=== PATIENT | male | born 1940 | race Caucasian/White ===

== ENCOUNTER → 2022-03-23 | Outpatient (CLI) | payer MEDICARE, BC ==
[~2022-03-23] MED LIST: IODINE/POTASS IOD (LUGOLS) BOTTLE ONE
--- NOTE | 2022-03-26 09:10 | NM ---
EXAMINATION TYPE: NM DatScan Brain SPECT DATE OF EXAM: 03/23/2022 COMPARISON: NONE HISTORY: Tremors TECHNIQUE: 10 drops of Lugol's solution was administered 1 hour prior to injection as a thyroid bloc tristen agent. After the administration of 4.63 mCi I-123 Ioflupane DaTscan. Images obtained 3 hours p ost injection. SPECT images of the brain were acquired with axial and coronal reconstructions. FINDINGS: The axial SPECT images demonstrate increased background activity and reduced activity withi n the bilateral striata. IMPRESSION: Abnormal appearance highly suggestive of idiopathic Parkinson's disease or Parkinsonian s yndrome.
== END | disposition home or self-care (01) ==
LOC: RADNMMAIN 10:47
PROVIDERS: ATTEND Psychiatry & Neurology Neurology
DX: G20 Parkinson's disease (principal)
CPT/HCPCS: 78803; A9584

== ENCOUNTER → 2022-03-28 | Outpatient (CLI) | payer MEDICARE, BC ==
--- NOTE | 2022-03-28 20:10 | US ---
EXAMINATION TYPE: US kidneys/renal and bladder DATE OF EXAM: 03/28/2022 COMPARISON: NONE CLINICAL HISTORY: N18.32 STAGE 3 CKD. CKD STAGE 3B EXAM MEASUREMENTS: Right Kidney: 10.1 x 5.1 x 5.0 cm Left Kidney: 10.4 x 5.2 x 5.1 cm Right Kidney: INFERIOR POLE CYST NOTED JAY. 2.0 x 2.0 x 2.0cm Left Kidney: INFERIOR POLE CYSTS NOTED, LARGEST JAY. 1.5 x 1.1 x 1.5cm Bladder: DIVERTICULUM VS SEPTATION NOTED Bilateral Jets seen: Yes There is no evidence for hydronephrosis at this point in time. No nephrolithiasis is seen. No solid masses are identified. The urinary bladder is anechoic. Bilateral ureteral jets are seen. IMPRESSION: Bilateral simple appearing renal cysts.
== END | disposition home or self-care (01) ==
LOC: RADUSWWP 15:22
PROVIDERS: ATTEND Internal Medicine
DX: N18.32 Chronic kidney disease, stage 3b (principal); N28.1 Cyst of kidney, acquired
CPT/HCPCS: 76770

== ENCOUNTER 2022-06-13 06:50 | Day surgery (SDC) | payer MEDICARE, BC ==
[~2022-06-13 06:50] MED LIST changes: -IODINE/POTASS IOD (LUGOLS) BOTTLE ONE; +LACTATED RINGERS 1,000 ML IV SCH; +MOXIFLOXACIN HCL 0.5% DROPS 3 ML BTL OP PRN; +TETRACAINE 0.5% OPHTH (PF) DROPS 4 ML BTL OP PRN; +TIMOLOL 0.5% OPHTH DROPS 5 ML BTL OP PRN
[2022-06-13 07:15] VITALS: TEMP 97.8
[2022-06-13] MEDS ORDERED: LACTATED RINGERS 1,000 ML IV ONE (07:15)
[2022-06-13] MEDS: CYCLOPENTOLATE 1% OPHTH SOLN 2 ML BTL OP PRN ×3 (07:20→07:32)
[2022-06-13] MEDS: PHENYLEPHRINE 2.5% OPHTH DRP 2ML OP PRN ×3 (07:23→07:36)
[2022-06-13] MEDS ORDERED: MIDAZOLAM 2 MG/2 ML VIAL ONE (08:14)
[2022-06-13] MEDS ORDERED: fentaNYL (PF) 50 MCG/ML 2 ML AMP ONE (08:14)
[2022-06-13] MEDS ORDERED: BALANCED SALT IRRIG SOLN COMB2 15 ML IRRIG.SOLN INTRAOCULA ONE (08:26)
[2022-06-13] MEDS ORDERED: DUOVISC KIT (GREEN BOX) INTRAOCULA ONE (08:26)
[2022-06-13] MEDS ORDERED: LIDOCAINE 1% (PF) 10MG/ML VIAL SQ ONE (08:27)
[2022-06-13] MEDS ORDERED: EPINEPHrine (PF) 0.3 ML in BALANCED SALT IRRIG SOLN COMB2 500 ML IRRIGATION ONE (08:34)
--- NOTE | 2022-06-13 08:53 | P.OP ---
Date of Procedure: 06/13/22 Preoperative Diagnosis: NS & CS & reg astigm Postoperative Diagnosis: same Procedure(s) Performed: PIOL< OD Implants: [id number] 25.50 x 2.00 Anesthesia: MAC Surgeon: Fei Talavera Pathology: none sent Condition: stable Disposition: same day Indications for Procedure: blurry vision Operative Findings: no complications
[2022-06-13] MEDS ORDERED: hydrALAZINE HCL 20 MG/ML 1 ML VIAL ONE (09:27)
[2022-06-13] MEDS ORDERED: hydrALAZINE HCL 20 MG/ML 1 ML VIAL IVP ONE (09:30)
[2022-06-13 09:47] VITALS: BP 197/85; PULSE 64; RESP 16
--- NOTE | 2022-06-14 01:53 | OP ---
OPERATIVE REPORT PROCEDURES: Phacoemulsification of cataract and intraocular lens implantation of the right eye. PREOPERATIVE DIAGNOSES: Nuclear sclerosis and cortical sclerosis, and regular astigmatism. POSTOPERATIVE DIAGNOSES: Nuclear sclerosis and cortical sclerosis, and regular astigmatism ANESTHESIA: Topical. ESTIMATED BLOOD LOSS: None. SPECIMEN TAKEN: None. NARRATIVE: After obtaining the appropriate consent, the patient was brought to the operating room. There, he was asked to sit upright and the axes 0 and 180 degrees was identified and marked with a gentian sue marker. He was then placed in the proper supine position under cardiac monitoring and then prepped and draped in the usual sterile manner. Using previously acquired corneal topography information, an axis of 66 degrees was identified and marked with a Cionni axis marker. At the 11 o'clock position, an MVR blade was used to create a paracentesis port. Through this opening, 1% Xylocaine MPF 50:50 mix with balanced salt solution was injected into the anterior chamber. This was followed by stabilization of the anterior chamber with Viscoat. At the 9 o'clock position, a 2.5 mm keratome was used to create a self-sealing corneal flap incision. Through that opening, a cystotome was introduced to begin a continuous tear capsulorrhexis, which was then completed using the Utrata forceps. Hydrodissection and hydrodelineation of the lens were accomplished with balanced salt solution. Phacoemulsification of the lens utilizing phaco-chop was accomplished in 20.81 seconds at 14% power. Additional Xylocaine MPF was instilled into the anterior chamber. This was followed by removal of the remaining cortical material from in and around the intraocular lens as well as careful polishing of the posterior capsule in the capsule vacuum mode. Provisc was then used to stabilize the capsular bag and MX60ET 25.5 diopter by 2 diopter posterior chamber intraocular lens was then inserted into the capsular bag without difficulty. The remaining viscoelastic was removed from in and around the intraocular lens as well as the anterior chamber. A final step in setting the lens in the posterior capsule was to align the lens index bales with the 66 degrees previously placed on the patient's cornea. The lens was tamponaded against the posterior capsule for approximately 15 to 20 seconds. This was followed by removal of the irrigation and aspiration tip and the eye was then brought to normal intraocular pressure through the paracentesis port. Incisions were confirmed watertight and the Cionni axis marker was used to once again identify the orientation of the toric implant. He then received 2 drops of 0.5% timolol followed by 2 drops of 0.5% moxifloxacin, was then lightly patched and shielded in the usual manner. There were no complications from the procedure. He tolerated the procedure well and was returned to outpatient recovery in good condition. MMTEJINDER / YEIMY: [id number] /
== END 2022-06-13 10:15 | disposition home or self-care (01) ==
LOC: OR 06:50
PROVIDERS: ATTEND Ophthalmology
DX: H25.811 Combined forms of age-related cataract, right eye (principal); G20 Parkinson's disease; I13.10 Hypertensive heart and chronic kidney disease without heart failure, with stage 1 through stage 4 chronic kidney disease, or unspecified chronic kidney disease; N18.9 Chronic kidney disease, unspecified; E78.00 Pure hypercholesterolemia, unspecified; M54.9 Dorsalgia, unspecified; H04.121 Dry eye syndrome of right lacrimal gland; H52.03 Hypermetropia, bilateral; H25.011 Cortical age-related cataract, right eye; H52.223 Regular astigmatism, bilateral; H52.4 Presbyopia; I25.10 Atherosclerotic heart disease of native coronary artery without angina pectoris; Z95.5 Presence of coronary angioplasty implant and graft; Z79.899 Other long term (current) drug therapy; Z79.890 Hormone replacement therapy
CPT/HCPCS: 66984; V2632; J2250; J0360; J0171; J3010; J2001

== ENCOUNTER 2022-07-11 06:44 | Day surgery (SDC) | payer MEDICARE, BC ==
[~2022-07-11 06:44] MED LIST changes: -LACTATED RINGERS 1,000 ML IV SCH; +LIDOCAINE 1% (10MG/ML) FOR IV START INTRADERMA PRN; -MOXIFLOXACIN HCL 0.5% DROPS 3 ML BTL OP PRN; -TIMOLOL 0.5% OPHTH DROPS 5 ML BTL OP PRN
[2022-07-11] MEDS: LACTATED RINGERS 1,000 ML IV SCH ×2 (07:12→07:30)
[2022-07-11] MEDS: CYCLOPENTOLATE 1% OPHTH SOLN 2 ML BTL OP PRN ×3 (07:16→07:40)
[2022-07-11] MEDS: PHENYLEPHRINE 2.5% OPHTH DRP 2ML OP PRN ×3 (07:23→07:43)
[2022-07-11 07:35] VITALS: RESP 16; TEMP 97.6
[2022-07-11] MEDS ORDERED: MIDAZOLAM 2 MG/2 ML VIAL ONE (08:09)
[2022-07-11] MEDS ORDERED: fentaNYL (PF) 50 MCG/ML 2 ML AMP ONE (08:09)
[2022-07-11] MEDS ORDERED: EPINEPHrine (PF) 0.3 ML in BALANCED SALT IRRIG SOLN COMB2 500 ML IRRIGATION ONE ×4 (08:15)
[2022-07-11] MEDS ORDERED: LIDOCAINE 1% (PF) 10MG/ML VIAL MISCELLANE ONE (08:31)
[2022-07-11] MEDS ORDERED: EPINEPHrine (PF) 1 MG/ML AMP MISCELLANE ONE (08:31)
[2022-07-11] MEDS ORDERED: BALANCED SALT IRRIG SOLN COMB2 15 ML IRRIG.SOLN IRRIGATION ONE (08:31)
[2022-07-11] MEDS ORDERED: HYALURONATE SODIUM INTRAOCULAR 1 EACH SYRINGE (12MG/ML) INTRAOCULA ONE (08:31)
[2022-07-11] MEDS: TIMOLOL 0.5% OPHTH DROPS 5 ML BTL OP PRN ×2 (08:43→08:51)
[2022-07-11] MEDS: MOXIFLOXACIN HCL 0.5% DROPS 3 ML BTL OP PRN ×2 (08:44→08:51)
--- NOTE | 2022-07-11 08:57 | P.OP ---
Date of Procedure: 07/11/22 Preoperative Diagnosis: NS & CS Postoperative Diagnosis: same Procedure(s) Performed: PIOL< OS Implants: [id number] 26.00 Anesthesia: MAC Surgeon: Fei Talavera Pathology: none sent Condition: stable Disposition: same day Indications for Procedure: blurry vision Operative Findings: no complications
[2022-07-11 09:49] VITALS: BP 127/65; PULSE 61
--- NOTE | 2022-07-11 11:57 | OP ---
OPERATIVE REPORT PROCEDURES PERFORMED: Phacoemulsification of cataract and intraocular lens implant of the left eye. PREOPERATIVE DIAGNOSES: Nuclear sclerosis, cortical sclerosis, and regular astigmatism. POSTOPERATIVE DIAGNOSES: Nuclear sclerosis, cortical sclerosis, and regular astigmatism. ANESTHESIA: Topical. ESTIMATED BLOOD LOSS: None. SPECIMEN TAKEN: None. NARRATIVE: After obtaining the appropriate consent, the patient was brought to the operating room. There, he was asked to sit upright, and the axes of 0 and 180 degrees were identified and marked with a gentian sue marker. He was then placed in the proper supine position under cardiac monitoring and prepped and draped in the usual sterile manner. He was approached from his left temporal side. Using previously-acquired corneal topography information, the axis of 105 degrees was identified and marked with a Izooble axis marker. At the 5 o'clock position, an MVR blade was used to create a paracentesis port. Through this opening, 1% Xylocaine MPF with epinephrine 1:1000 MPF and balanced salt solution in a ratio of 1:2:1 was injected into the anterior chamber. This was followed by stabilization of the anterior chamber with Amvisc. At the 3 o'clock position, a 2.5 mm keratome was used to create a self-sealing corneal flap incision. At this point, the pupil was identified to be only partially identified, and based on historical experience with this patient, a 6.25 Malyugin ring was placed on the pupillary sphincter without difficulty. A cystotome was then introduced to begin a continuous tear capsulorrhexis, which then was completed with the Utrata forceps. Hydrodissection and hydrodelineation of the lens were accomplished with balanced salt solution. Phacoemulsification of the lens utilizing phaco chop was accomplished in 15.03 seconds at 14% power. Additional med mix of the Xylocaine and epinephrine was injected into the anterior chamber. This was followed by removal of the remaining cortical material under irrigation and aspiration as well as careful polishing of the posterior capsule in the capsule vacuum mode. Additional Amvisc was then used to stabilize the capsular bag, and a [employer]ausch [employer] Lomb MX60ET 26-diopter, 2-diopter cylinder posterior chamber intraocular lens was injected into the capsular bag without difficulty. The remaining viscoelastic was removed from in and around the intraocular lens itself, and the lens was oriented in its proper direction at the 105-degree dayna previously placed on the patient's cornea. Additional Amvisc was placed in the anterior chamber of the eye to be able to retrieve the Malyugin ring, which was accomplished without difficulty. Then, the anterior chamber was then cleared of all remaining viscoelastic under irrigation and aspiration. Confirmation of the orientation of the lens was completed at the end of the case with the Cionni axis marker, and the eye was then brought to normal intraocular pressure through the paracentesis port with balanced salt solution. The eye was confirmed watertight. He then received 2 drops of 0.5% timolol followed by 2 drops of moxifloxacin, was then lightly patched and shielded in the usual manner. There were no complications. He was returned to outpatient recovery in good condition. MMODL / IJN: [id number] /
== END 2022-07-11 10:32 | disposition home or self-care (01) ==
LOC: OR 06:44
PROVIDERS: ATTEND Ophthalmology
DX: H25.12 Age-related nuclear cataract, left eye (principal); H52.222 Regular astigmatism, left eye; I25.10 Atherosclerotic heart disease of native coronary artery without angina pectoris; I10 Essential (primary) hypertension; E78.5 Hyperlipidemia, unspecified; G20 Parkinson's disease; Z98.42 Cataract extraction status, left eye
CPT/HCPCS: 66984; V2632; J2250; J0171; J3010; J2001

== ENCOUNTER → 2022-09-07 | Outpatient (CLI) | payer MEDICARE, BC ==
[2022-09-07 18:34] LABS: ALT 32 U/L (10-49); AST 23 U/L (14-35); Chol/HDL Ratio 2.27 Ratio; LDL Cholesterol,Calculated 62.7 mg/dL (0.0-131.0)
== END | disposition home or self-care (01) ==
LOC: LABWHC1 13:09
PROVIDERS: ATTEND Internal Medicine Cardiovascular Disease
DX: E78.2 Mixed hyperlipidemia (principal)
CPT/HCPCS: 36415; 80061; 84450; 84460